=== PATIENT | male | born 1970 | race Hispanic/Latino ===

== ENCOUNTER 2017-11-13 20:44 | Emergency (ER) | payer OTHER ==
[2017-11-13] MEDS ORDERED: MORPHINE SULFATE 4 MG/1ML SYG ONE (21:09)
[2017-11-13] MEDS ORDERED: ONDANSETRON HCL MDV 20ML 2 MG/ML VIAL ONE (21:09)
[2017-11-13] MEDS ORDERED: METHYLPREDNISOLONE SOD SUCC 125MG/2ML VIAL ONE (22:50)
[2017-11-13] MEDS ORDERED: BACLOFEN 10 MG TABLET PO ONE (22:50)
[2017-11-13] MEDS ORDERED: KETOROLAC TROMETHAMINE 15MG/ML ONE ×2 (22:51→22:57)
== END 2017-11-13 23:22 ==
LOC: EDH 20:44 → EEVIPCON 20:44 → EDH 23:22
DX: S13.8XXA Sprain of joints and ligaments of other parts of neck, initial encounter (principal); S32.010S Wedge compression fracture of first lumbar vertebra, sequela; M25.551 Pain in right hip; M25.521 Pain in right elbow; W01.0XXA Fall on same level from slipping, tripping and stumbling without subsequent striking against object, initial encounter; Y93.89 Activity, other specified; Y92.89 Other specified places as the place of occurrence of the external cause; Y99.8 Other external cause status
CPT/HCPCS: 70450; 72125; 72131; 73080; 73502; 96374; 96375; 99284; J1885 ×2; J2270; J2930